=== PATIENT | male | born 1995 | race Caucasian/White ===

== ENCOUNTER 2025-07-24 18:10 | Emergency (ER) | payer SELFPAY ==
[~2025-07-24] VITALS: Ht 172.7 cm; Wt 77.1 kg
--- NOTE | 2025-07-24 18:29 | ERN ---
ED Note History of Present Illness Stated Complaint: JITTERY AND ANXIETY AFTER USING COCAINE Chief Complaint: Other Problems Time Seen by MD: 18:15 Dictation: PATIENT IS A 30-YEAR-OLD MALE COMING IN VIA EMS AFTER INGESTING SOME COCAINE THAT IS SOME FRIENDS AND GIVEN HIM AND THEN HE GOT ANXIOUS AND JITTERY. HE SAID HE DOES NOT KNOW IF IT WAS REALLY COCAINE OR NOT BUT THEY TOLD HIM IT WAS COCAINE. NO CHEST PAIN NO BACK PAIN NO HEADACHE SAID HE CALLED HIS MOTHER WHO ADVISED HIM TO GO TO THE NEAREST EMERGENCY ROOM. 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 JUST WISHES HE KNEW WHAT IT WAS THAT HE HAD INGESTED FROM THESE FRIENDS. Allergies: Coded Allergies: No Known Drug Allergies (Unverified Allergy, Unknown, 07/24/25) Past Medical History Social History: Drugs RN Note Reviewed/Agreed w/PFSH: Yes Review of System Dictation CONSTITUTIONAL: NEGATIVE EXCEPT FOR HPI HEAD/FACE: NEGATIVE EXCEPT FOR HPI EENT: NEGATIVE EXCEPT FOR HPI RESPIRATORY: NEGATIVE EXCEPT FOR HPI GASTROINTESTINAL/ABDOMINAL: NEGATIVE EXCEPT FOR HPI GENITOURINARY: NEGATIVE EXCEPT FOR HPI MUSCULOSKELETAL: NEGATIVE EXCEPT FOR HPI INTEGUMENTARY: NEGATIVE EXCEPT FOR HPI NEUROLOGICAL/PSYCH: NEGATIVE EXCEPT FOR HPI ANXIETY/JITTERY HEMATOLOGIC/LYMPHATIC: NEGATIVE EXCEPT FOR HPI ALL SYSTEMS NEGATIVE, EXCEPT NOTED ABOVE. 13 POINT REVIEW OF SYSTEMS ASSESSED AND ALL NEGATIVE EXCEPT FOR ABOVE. Initial Vital Sign VS Vital Signs Date Time Temp Pulse Resp B/P (MAP) Pulse Ox O2 Delivery O2 Flow Rate FiO2 07/24/25 18:11 98.1 99 20 131/87 97 0 Physical Exam Dictation VITAL SIGNS REVIEWED GENERAL APPEARANCE: ALERT, ORIENTED X 3, ANXIOUS ACUTE DISTRESS, WELL DEVELOPED, NOURISHED. HEAD AND FACE: NON-TRAUMATIC. EYES: PERRL, PINK CONJUNCTIVAS, EYELID NO TRAUMA, ANTERIOR CHAMBER WITH ARCUS SENILIS. EARS: PINNAS INTACT AND NO SIGNS OF TRAUMA OR ERYTHEMA EAR CANALS CLEAR AND NO DISCHARGE TM NO ERYTHEMA NOSE: NO DISCHARGE, NO BLEEDING. OROPHARYNX: MOUTH NORMAL, TONGUE PINK, PHARYNX CLEAR,NO ERYTHEMA, TONSILS NO EXUDATES, NO ABSCESSES NOTED, MUCOUS MEMBRANE MOIST NECK: SUPPLE, NON-TENDER, NO THYROMEGALY, NO MASSES, NO JVD, NO BRUITS BREAST:DEFERRED CHEST:NO TENDERNESS, NO CREPITUS, NO PARADOXICAL MOVEMENT, NO RETRACTIONS LUNGS:CLEAR, WELL-VENTILATED, SYMMETRIC, NO RALES, NO WHEEZING, NO RHONCHI, NO STRIDOR, GOOD BREATH SOUNDS BILATERALLY HEART: REGULAR RATE, REGULAR RHYTHM, NO MURMUR, NO GALLOPS VASCULAR: NO PERIPHERAL EDEMA, ABDOMEN: SOFT, POSITIVE BOWEL SOUNDS, NONDISTENDED, NO GUARDING, NONTENDER, NO REBOUND, NO MASSES NO HEPATOMEGALY, NO SPLENOMEGALY, NO RAHMAN'S SIGN, NO HERNIAS. RECTAL: DEFERRED GENITAL: DEFERRED NEUROLOGICAL: NORMAL SPEECH, MOTOR FUNCTION INTACT, SENSORY FUNCTION INTACT NO SI OR HI SPEECH IS CLEAR MUSCULOSKELETAL: NECK NONTENDER, FULL RANGE OF MOTION, BACK NONTENDER, FULL RANGE OF MOTION, EXTREMITIES: NONTENDER, FULL RANGE OF MOTION SKIN: COLOR PINK, DRY, NO TURGOR, NO RASH, NO LACERATIONS, NO ABRASIONS, NO CONTUSIONS. LYMPHATIC: DEFERRED Results (Laboratory/Radiology) Laboratory/Radiology Laboratory Tests Test 07/24/25 19:26 Urine Opiates Screen NEGATIVE (NEGATIVE) Urine Barbiturates Screen NEGATIVE (NEGATIVE) Urine Phencyclidine Screen NEGATIVE (NEGATIVE) Urine Amphetamines Screen NEGATIVE (NEGATIVE) Urine Benzodiazepines Screen POSITIVE (NEGATIVE) H Urine Cocaine Screen POSITIVE (NEGATIVE) H Urine Marijuana (THC) Screen POSITIVE (NEGATIVE) H Labs Reviewed?: Yes ED Course ED Course Orders Procedure Category Date Status Time Drug Screen Urine LAB 07/24/25 In Process 18:27 Vital Signs Date Time Temp Pulse Resp B/P (MAP) Pulse Ox O2 Delivery O2 Flow Rate FiO2 07/24/25 18:11 98.1 99 20 131/87 97 0 1945/DRUG SCREEN DEMONSTRATES POLY DRUG ABUSE CONTINUOUS TO INCLUDE COCAINE/BENZODIAZEPINE/THC PATIENT WAS STRONGLY ADVISED TO STOP ILLEGAL DRUGS TO INCLUDE COCAINE OR RISK INSTANT , STROKE OR HEART ATTACK. DUE TO FENTANYL Medical Decision Making MDM MEDICAL DISCHARGE MAKING BASED ON URINE DRUG SCREEN PATIENT HAS A HISTORY OF POLYDRUG ABUSE POSITIVE FOR MULTIPLE DRUGS TO INCLUDE COCAINE/THC/BENZO STRONGLY ADVISED TO STOP ILLEGAL DRUG USE TO INCLUDE COCAINE OR RISK HEART ATTACK, STROKE OR INSTANT DUE TO BEING CUT WITH FENTANYL REFERRED TO HIS PRIMARY CARE DOCTOR DX & DISP Disposition: Discharge Departure Impression: Primary Impression: Polydrug abuse, continuous Additional Impression: Cocaine abuse Condition: Stable Additional Instructions: FOLLOW-UP WITH PRIMARY CARE PROVIDER IN 1 TO 2 DAYS. TAKE MEDICATIONS DIRECTED HERE IN THE EMERGENCY ROOM. OKAY TO CONTINUE HOME MEDICATIONS UNLESS OTHERWISE DISCUSSED DURING YOUR VISIT IN THE EMERGENCY ROOM TODAY. RETURN TO YOUR NEAREST EMERGENCY ROOM IF SYMPTOMS WORSEN OR IF THERE IS NO IMPROVEMENT. CALL 911 IF YOU NEED IMMEDIATE ASSISTANCE. TAKE TYLENOL OR MOTRIN [id number] NEEDED AND IF NO CONTRAINDICATIONS ARE PRESENT. INCREASE ORAL HYDRATION. A WOUND CULTURE OR URINE CULTURE WAS ORDERED HERE IN THE EMERGENCY ROOM DEPARTMENT PLEASE FOLLOW-UP WITH PRIMARY CARE PROVIDER AND ADVISE THEM TO GET REPEAT PORTS FROM OUR FACILITY. IF YOU HAD ANY MARCUS WRAP/SPLINTS THAT WERE APPLIED HERE, PLEASE DO NOT REMOVE THEM UNTIL YOU SEE YOUR PRIMARY CARE OR SPECIALTY. STOP ALL ILLEGAL DRUGS TO INCLUDE COCAINE OR RISK HEART ATTACK, STROKE OR INSTANT DUE TO COCAINE BEING CUT WITH FENTANYL. INCREASE YOUR WATER INTAKE. SEE YOUR PRIMARY CARE DOCTOR IN THE NEXT 1-2 DAYS Referrals: SELF,REFERRAL (PCP) Time of Disposition: 19:45 I have reviewed the case, and I agree with, Diagnosis and Plan ALON MASSEY [employer] SPECIALIST Jul 24, 2025 18:29
[2025-07-24 19:30] VITALS: BP 128/82; PULSE 92; RESP 16; TEMP 98; O2SAT 99
[2025-07-24 19:43] LABS: AMPHET/METH SCREEN,URINE NEGATIVE (NEGATIVE); BARBITURATE SCREEN, URINE NEGATIVE (NEGATIVE); CANNABINOID SCREEN,URINE POSITIVE (NEGATIVE); COCAINE SCREEN,URINE POSITIVE (NEGATIVE)
== END 2025-07-24 19:57 | disposition home or self-care (01) ==
LOC: EDH 18:10
DX: F14.10 Cocaine abuse, uncomplicated (principal); F19.10 Other psychoactive substance abuse, uncomplicated; Z79.899 Other long term (current) drug therapy
CPT/HCPCS: 80305; 99283